=== PATIENT | male | born 1950 | race Caucasian/White ===

== ENCOUNTER 2018-10-10 05:54 | Inpatient (IN) | payer MEDICARE ==
[2018-09-29 12:37] LABS: Basophils % (Auto) 0.4 % (0.0-1.8); Eosinophils % (Auto) 0.6 % (0.0-4.3); Hematocrit 47.1 % (35.5-45.6); Hemoglobin 15.8 gm/dl (11.8-15.2); Lymphocytes # (Auto) 1.8 K/mm3 (1.2-5.4); Lymphocytes % (Auto) 30.8 % (13.4-35.0); Mean Corpuscular HGB Conc 34 % (32-34); Mean Corpuscular Volume 93 fl (84-94); Monocytes # (Auto) 0.5 K/mm3 (0.0-0.8); Monocytes % (Auto) 8.3 % (0.0-7.3); Platelet Count 216 K/mm3 (140-440); Red Blood Count 5.06 M/mm3 (3.65-5.03); Red Cell Distribution Width 13.9 % (13.2-15.2)
[2018-09-29 13:05] LABS: Alanine Aminotransferase 41 units/L (7-56); Albumin 4.3 g/dL (3.9-5); BUN/Creatinine Ratio 19; Blood Urea Nitrogen 15 mg/dL (9-20); Hemolysis Index 19
[2018-09-29 13:10] LABS: INR 0.87 (0.87-1.13); Partial Thromboplastin Time 27.9 Sec. (24.2-36.6)
--- NOTE | 2018-09-29 13:30 | Anesthesia Consultation ---
Anesthesia Consult and Med Hx - Airway Anesthetic Teeth Evaluation: Good ROM Head & Neck: Adequate Mental/Hyoid Distance: Adequate Mallampati Class: Class II - Pulmonary Exam CTA: Yes - Cardiac Exam Cardiac Exam: RRR - Pre-Operative Health Status ASA Pre-Surgery Classification: ASA2 Proposed Anesthetic Plan: General - Pulmonary Hx Smoking: No Hx Sleep Apnea: Yes (DX SLEEP APNEA WITH CPAP USE.) - Cardiovascular System Hx Hypertension: No - Central Nervous System Hx Neuromuscular Disorder: (benign tremors) - Endocrine Hx Non-Insulin Dependent Diabetes: Yes - Other Systems Hx Alcohol Use: No Hx Substance Use: No Hx Cancer: No
[~2018-10-10 05:54] MED LIST: NACL 0.9% 1000 ML 1,000 ML IV SCH; NEURONTIN PO NR
[2018-10-10] MEDS ORDERED: NACL BACTERIOSTATIC INFILTRATI ONE (06:35)
[2018-10-10] MEDS ORDERED: ACD-A 500 ML IV ONE (07:23)
[2018-10-10] MEDS ORDERED: NEOSPORIN GU IR ONE ×2 (07:23→11:25)
[2018-10-10] MEDS ORDERED: METHYLENE BLUE ONE (07:23)
[2018-10-10] MEDS ORDERED: DIPRIVAN 10 MG/ML IV ONE (07:25)
[2018-10-10] MEDS ORDERED: SUBLIMAZE ONE (07:25)
[2018-10-10] MEDS ORDERED: ZOFRAN IV PRN ×2 (07:30→11:19)
[2018-10-10] MEDS ORDERED: SUBLIMAZE IV PRN (07:30)
[2018-10-10] MEDS ORDERED: VERSED IV NR (08:00)
[2018-10-10] MEDS ORDERED: TYLENOL PO NR (08:00)
[2018-10-10] MEDS ORDERED: ANCEF/STERILE WATER 2 GM/20 ML IV NR (08:00)
[2018-10-10] MEDS ORDERED: NEURONTIN PO NR (08:00)
[2018-10-10] MEDS ORDERED: NACL 0.9% 500 ML 500 ML IV NR (08:30)
[2018-10-10] MEDS ORDERED: KETALAR ONE (08:43)
[2018-10-10] MEDS ORDERED: NEO SYNEPHRINE/NS Syringe(OR USE) IV ONE (08:49)
[2018-10-10] MEDS ORDERED: NEO SYNEPHRINE ONE (08:49)
[2018-10-10] MEDS ORDERED: QUELICIN ONE (08:49)
[2018-10-10] MEDS ORDERED: XYLOCAINE MPF 2% ONE (08:49)
[2018-10-10] MEDS ORDERED: ZOFRAN ONE ×2 (08:49→11:04)
[2018-10-10] MEDS ORDERED: ZEMURON IV ONE ×2 (08:49→11:04)
[2018-10-10] MEDS ORDERED: ROBINUL ONE (08:49)
[2018-10-10] MEDS ORDERED: DECADRON ONE (08:49)
[2018-10-10] MEDS ORDERED: WATER FOR IRRIG STERILE IR ONE (09:05)
[2018-10-10] MEDS ORDERED: NACL 0.9% IR ONE (09:05)
--- NOTE | 2018-10-10 11:15 | Post Operative Note ---
Date of procedure: 10/10/18 Pre-op diagnosis: ca prostate AKERS Post-op diagnosis: same Findings: large gland Procedure: RRP Anesthesia: GETA Surgeon: AILYN AUGUST Natural Resource Specialist: EVONNE ALLEN Estimated blood loss: other (450) Pathology: list (prostae svs) Specimen disposition: to lab Condition: stable Disposition: PACU
[2018-10-10] MEDS ORDERED: MORPHINE IV PRN (11:19)
[2018-10-10] MEDS ORDERED: TYLENOL PO PRN (11:19)
[2018-10-10] MEDS ORDERED: NARCAN 0.4 MG/1 ML IV PRN (11:19)
[2018-10-10 11:23] LABS: Hematocrit 64.1 % (35.5-45.6); Hemoglobin 20.8 gm/dl (11.8-15.2)
[2018-10-10] MEDS: DILAUDID IV PRN ×3 (11:50→12:10)
[2018-10-10 12:15] LABS: Basophils % (Auto) 0.3 % (0.0-1.8); Eosinophils % (Auto) 0.1 % (0.0-4.3); Hematocrit 46.6 % (35.5-45.6); Hemoglobin 15.7 gm/dl (11.8-15.2); Lymphocytes # (Auto) 1.1 K/mm3 (1.2-5.4); Lymphocytes % (Auto) 8.5 % (13.4-35.0); Mean Corpuscular HGB Conc 34 % (32-34); Mean Corpuscular Volume 94 fl (84-94); Monocytes # (Auto) 0.2 K/mm3 (0.0-0.8); Monocytes % (Auto) 1.6 % (0.0-7.3); Platelet Count 198 K/mm3 (140-440); Red Blood Count 4.98 M/mm3 (3.65-5.03); Red Cell Distribution Width 13.7 % (13.2-15.2)
[2018-10-10 12:47] LABS: BUN/Creatinine Ratio 12; Blood Urea Nitrogen 12 mg/dL (9-20); Calcium 8.2 mg/dL (8.4-10.2); Hemolysis Index 19
[2018-10-10] MEDS: D5W/0.45% NACL/KCL 20 MEQ 20 MEQ/1,000 ML BAG IV SCH ×2 (13:25→22:15)
--- NOTE | 2018-10-10 14:49 | Operative Report ---
PREOPERATIVE DIAGNOSIS: Adenocarcinoma of the prostate, bladder outlet obstruction. POSTOPERATIVE DIAGNOSIS: Adenocarcinoma of the prostate, bladder outlet obstruction. PROCEDURE: Radical retropubic prostatectomy. SURGEON: Jesu Henley MD and Wisam May MD ANESTHESIA: General. FINDINGS: This is a gentleman with bladder outlet obstruction, elevated PSA and prostate cancer confirmed. He now presents for radical prostatectomy. Robotic was offered, but he has had three mesh surgeries at the level of the umbilicus. DESCRIPTION OF PROCEDURE: The patient was brought to the operating room and placed on the operating table. Following induction of anesthesia, placed in supine position, prepped and draped in usual sterile fashion. A midline incision was made, carried through the skin and superficial fascial layers. Gerber catheter was placed and was draining well. At this point, we carried this down to the space of Retzius and endopelvic fascia was opened. Iliac vessels were exposed. There were no suspicious nodes noted and formal node dissection was not carried out. At this point, the endopelvic fascia was opened and large amount of fatty tissue above the puboprostatic were taken down. The puboprostatic opened and using an Allis clamp we tied the dorsal venous complex. A backbleeding stitch was also placed. The dorsal venous complex was divided with the cautery and carried down to the urethra. We separately sutured the dorsal venous complex as well. Urethra was isolated and opened. The Gerber was brought forward and 6 sutures with the Capio placed. Once these were secured on the distal end, the distal urethra was divided and an excellent plane was developed between the prostate and rectum. Prostate was held up and the pedicles were taken on the right and then the left side without difficulty. Hemostasis was good. Denonvilliers fascia was opened and the seminal vesicles and vasa were then divided down to the tips and clipped with small clips. At this point, wound was irrigated. The rest of the small pedicles were divided, all cauterized and carried anteriorly. We could feel the middle lobe, which was 2.5 cm in the middle lobe and the patient was given blue just in case we needed it. The anterior bladder neck was opened and the middle lobe was scooped out and we hug the middle lobe and remove the specimen. Bladder neck was reconstructed with 3-0 Vicryl and 2-0 Vicryl. Excellent bladder neck was achieved and the anastomosis was completed with previously placed Capio sutures over a Silastic catheter. Wound was irrigated. Tisseel was placed. The patient tolerated the procedure well. RICHARD was placed in space of Retzius and secured with silk. Muscle was approximated with 3-0 Vicryl, fascia with looped PDS and skin with clips. The patient tolerated the procedure well. Catheter irrigated freely, brought to recovery room in stable condition. JOB# [id number] RON/JIMENEZ
--- NOTE | 2018-10-10 14:56 | Consultation ---
History of Present Illness - Reason for Consult Consult date: 10/10/18 Diabetes, HTN Requesting physician: AILYN AUGUST - History of Present Illness 68 YO Male with DUSTIN on CPAP QHS, DM prsents to [facility] for elective prostatectomy. Consult placed by Dr. August for medical management. Pt seen and evaluated in his room. Pt family at bedside. Pt denies fever, chills, CP, Palpitatioins, shortness of breath, skin rash, or recent ill contacts. Pt is comfortable and denies pain. No reported nursing events. Past History Past Medical History: diabetes, other (DUSTIN) Past Surgical History: Other (Prostate surgery) Social history: , lives with family Family history: diabetes, hypertension Medications and Allergies Allergies Allergy/AdvReac Type Severity Reaction Status Date / Time No Known Allergies Allergy Verified 04/11/14 13:48 Home Medications Medication Instructions Recorded Confirmed Last Taken Type Metformin HCl [Metformin HCl ER] 1,000 mg PO BID 04/03/14 10/10/18 10/08/18 09:00 History Canagliflozin [Invokana] 300 mg PO DAILY 09/27/18 10/10/18 10/08/18 09:00 History Multivit-Mins/Iron/Folic/Lycop 1 each PO DAILY 09/27/18 10/10/18 10/08/18 09:00 History [Centrum Men's Tablet] Active Meds: Active Medications Acetaminophen (Tylenol) 650 mg PO PREOP NR Stop: 10/10/18 21:00 Last Admin: 10/10/18 07:40 Dose: 650 mg Documented by: Acetaminophen (Tylenol) 650 mg PO Q4H PRN PRN Reason: Pain MILD(1-3)/Fever >100.5/MEHTA Cefazolin Sodium (Ancef/Sterile Water 2 Gm/20 Ml) 2 gm IV PREOP NR Stop: 10/10/18 15:00 Celecoxib (Celebrex) 200 mg PO PREOP NR Stop: 10/10/18 21:00 Last Admin: 10/10/18 07:39 Dose: 200 mg Documented by: Fentanyl (Sublimaze) 50 mcg IV Q5MIN PRN PRN Reason: Pain , Severe (7-10) Stop: 10/10/18 19:00 Gabapentin (Neurontin) 300 mg PO PREOP NR Stop: 10/10/18 21:00 Last Admin: 10/10/18 07:40 Dose: 300 mg Documented by: Hydromorphone HCl (Dilaudid) 0.5 mg IV Q10MIN PRN PRN Reason: Pain , Severe (7-10) Stop: 10/10/18 15:00 Last Admin: 10/10/18 12:10 Dose: 0.5 mg Documented by: Sodium Chloride (Nacl 0.9% 1000 Ml) 1,000 mls @ 75 mls/hr IV DIRECT NEY Last Admin: 10/10/18 06:40 Dose: 75 mls/hr Documented by: Sodium Chloride (Nacl 0.9% 500 Ml) 500 mls @ 0 mls/hr IV ONCE NR Stop: 10/10/18 16:00 Potassium Chloride/Dextrose/Sod Cl (D5w/0.45% Nacl/Kcl 20 Meq) 20 meq in 1,000 mls @ 125 mls/hr IV DIRECT NEY Last Admin: 10/10/18 13:25 Dose: 125 mls/hr Documented by: Cefazolin Sodium (Ancef/Ns 1 Gm/50 Ml) 1 gm in 50 mls @ 100 mls/hr IV Q8H NEY; Protocol Stop: 10/11/18 00:29 Metformin HCl (Glucophage Xr) 1,000 mg PO BIDDIAB NEY Midazolam HCl (Versed) 2 mg IV PREOP NR Stop: 10/10/18 23:59 Last Admin: 10/10/18 07:41 Dose: 2 mg Documented by: Miscellaneous Medication (Canagliflozin [Invokana]) 300 mg PO DAILY NEY Morphine Sulfate (Morphine) 2 mg IV Q4H PRN PRN Reason: Pain, Moderate (4-6) Naloxone HCl (Narcan 0.4 Mg/1 Ml) 0.1 mg IV Q2MIN PRN PRN Reason: Res Rate </= 8 or 02 SAT < 92% Ondansetron HCl (Zofran) 4 mg IV ONCE PRN PRN Reason: Nausea And Vomiting Ondansetron HCl (Zofran) 4 mg IV Q8H PRN PRN Reason: N/V unrelieved by Reglan Oxycodone/Acetaminophen (Percocet 5/325) 1 tab PO Q6H PRN PRN Reason: Pain, Moderate (4-6) Review of Systems Constitutional: no weight loss, no weight gain, no fever, no chills, no sweats Ears, nose, mouth and throat: no ear pain, no tinnitis, no decreased hearing, no nose pain, no nasal congestion, no sinus pressure Cardiovascular: no chest pain, no orthopnea, no palpitations, no rapid/irregular heart beat, no edema, no lightheadedness, no shortness of breath Respiratory: no cough, no cough with sputum, no excessive sputum, no hemoptysis Gastrointestinal: no abdominal pain, no nausea, no vomiting, no diarrhea, no constipation, no change in bowel habits Genitourinary Male: no hematuria, no urinary hesitancy Rectal: no pain, no incontinence, no bleeding Musculoskeletal: no neck stiffness, no neck pain, no shooting arm pain, no low back pain Integumentary: no rash, no pruritis, no redness, no wounds, no jaundice, no boils Neurological: no transient paralysis, no paralysis, no parathesias, no numbness, no seizures Psychiatric: no anxiety, no memory loss, no sleep disturbances, no insomnia, no change in appetite, no suicidal ideation Endocrine: no cold intolerance, no heat intolerance, no polyphagia, no excessive thirst, no polydipsia Hematologic/Lymphatic: no easy bruising, no easy bleeding, no lymphadenopathy Allergic/Immunologic: no urticaria, no persistent infections, no anaphylaxis, no angioedema Exam - Constitutional Vitals: Temp Pulse Resp BP Pulse Ox 97.5 F L 94 H 18 139/80 93 10/10/18 13:05 10/10/18 13:05 10/10/18 13:05 10/10/18 13:05 10/10/18 13:05 General appearance: Present: no acute distress, well-nourished - EENT Eyes: Present: PERRL ENT: hearing intact, clear oral mucosa - Neck Neck: Present: supple, normal ROM - Respiratory Respiratory effort: normal Respiratory: bilateral: CTA - Cardiovascular Heart Sounds: Present: S1 & S2. Absent: rub, click - Extremities Extremities: pulses symmetrical, No edema Peripheral Pulses: within normal limits - Abdominal General gastrointestinal: Present: soft, non-tender, non-distended, normal bowel sounds Male genitourinary: Present: normal - Integumentary Integumentary: Present: clear, warm, dry - Musculoskeletal Musculoskeletal: gait normal, strength equal bilaterally - Psychiatric Psychiatric: appropriate mood/affect, intact judgment & insight - Neurologic Neurologic: CNII-XII intact, moves all extremities Results - Labs CBC & Chem 7: 10/10/18 11:53 10/10/18 11:53 Labs: Abnormal lab results 10/10/18 10/10/18 10/10/18 Range/Units 06:40 06:46 10:53 WBC (4.5-11.0) K/mm3 Hgb (11.8-15.2) gm/dl Hct (35.5-45.6) % Lymph % (Auto) (13.4-35.0) % Lymph # (1.2-5.4) K/mm3 Seg Neutrophils % (40.0-70.0) % Seg Neutrophils # (1.8-7.7) K/mm3 Glucose (75-100) mg/dL POC Glucose 121 H (70-105) Calcium (8.4-10.2) mg/dL Albumin < 0.2 L (3.9-5) g/dL Crossmatch See Detail 10/10/18 10/10/18 10/10/18 Range/Units 10:53 11:51 11:53 WBC 13.3 H (4.5-11.0) K/mm3 Hgb 20.8 H* 15.7 H D (11.8-15.2) gm/dl Hct 64.1 H* 46.6 H D (35.5-45.6) % Lymph % (Auto) 8.5 L (13.4-35.0) % Lymph # 1.1 L (1.2-5.4) K/mm3 Seg Neutrophils % 89.5 H (40.0-70.0) % Seg Neutrophils # 11.9 H (1.8-7.7) K/mm3 Glucose (75-100) mg/dL POC Glucose 143 H (70-105) Calcium (8.4-10.2) mg/dL Albumin (3.9-5) g/dL Crossmatch 10/10/18 Range/Units 11:53 WBC (4.5-11.0) K/mm3 Hgb (11.8-15.2) gm/dl Hct (35.5-45.6) % Lymph % (Auto) (13.4-35.0) % Lymph # (1.2-5.4) K/mm3 Seg Neutrophils % (40.0-70.0) % Seg Neutrophils # (1.8-7.7) K/mm3 Glucose 199 H (75-100) mg/dL POC Glucose (70-105) Calcium 8.2 L (8.4-10.2) mg/dL Albumin (3.9-5) g/dL Crossmatch Assessment and Plan - Patient Problems (1) DUSTIN (obstructive sleep apnea) Current Visit: Yes Status: Acute Plan to address problem: Supplemental oxygen, nebulizer therapy, NPPV qhs, incentive spirometry, early ambulation. (2) Diabetes Current Visit: Yes Status: Acute Plan to address problem: ADA diet, sliding scale insulin therapy, accu check, hypoglycemia protocol
[2018-10-10] MEDS ORDERED: D50W (25GM) Syringe IV PRN (14:57)
[2018-10-10] MEDS: ANCEF/NS 1 GM/50 ML 1 GM/50 ML BAG IV SCH (16:30)
[2018-10-10] MEDS: PERCOCET 5/325 PO PRN ×2 (16:40→23:23)
[2018-10-10] MEDS ORDERED: GLUCOPHAGE XR PO SCH (17:00)
[2018-10-10] MEDS: HumaLOG SUB-Q SCH (17:28)
[2018-10-10] MEDS ORDERED: METFORMIN HCL 1000 MG PO SCH (22:00)
[2018-10-11] MEDS: ANCEF/NS 1 GM/50 ML 1 GM/50 ML BAG IV SCH (00:13)
[2018-10-11] MEDS: HumaLOG SUB-Q SCH ×4 (00:13→17:01)
--- NOTE | 2018-10-11 08:02 | Progress Note ---
Assessment and Plan Assessment and plan: 68-year-old male was admitted by urology for prostatectomy. HM consulted for management of his diabetes and DUSTIN Diabetes mellitus; on sliding scale insulin, ADA diet, accucheck. Obstructive sleep apnea; continue CPAP daily at bedtime Status post prostatectomy; management per urology Disposition; per urology. History Interval history: Patient was seen and a lot of this morning, no obvious bleeding seen on catheter. Hospitalist Physical - Physical exam Narrative exam: Not in cardiopulmonary distress. The patient appeared well nourished and normally developed. Vital signs as documented. Head exam is unremarkable. No scleral icterus . Neck is without jugular venous distension, thyromegaly, or carotid bruits. Lungs are clear to auscultation. Cardiac exam reveals regular rate and Rhythm. Abdominal exam reveals normal bowel sounds. Extremities are nonedematous and both femoral and pedal pulses are normal. REGULATORY COORDINATOR: Alert and oriented 3. No focal weakness. - Constitutional Vitals: Temp Pulse Resp BP Pulse Ox 98.8 F 66 19 110/66 100 10/11/18 07:15 10/11/18 07:15 10/11/18 07:15 10/11/18 07:15 10/11/18 07:15 General appearance: Present: no acute distress, well-nourished Results - Labs CBC & Chem 7: 10/10/18 11:53 10/10/18 11:53 Labs: Laboratory Last Values WBC 13.3 K/mm3 (4.5-11.0) H 10/10/18 11:53 RBC 4.98 M/mm3 (3.65-5.03) 10/10/18 11:53 Hgb 15.7 gm/dl (11.8-15.2) H D 10/10/18 11:53 Hct 46.6 % (35.5-45.6) H D 10/10/18 11:53 MCV 94 fl (84-94) 10/10/18 11:53 MCH 32 pg (28-32) 10/10/18 11:53 MCHC 34 % (32-34) 10/10/18 11:53 RDW 13.7 % (13.2-15.2) 10/10/18 11:53 Plt Count 198 K/mm3 (140-440) 10/10/18 11:53 Lymph % (Auto) 8.5 % (13.4-35.0) L 10/10/18 11:53 [place] % (Auto) 1.6 % (0.0-7.3) 10/10/18 11:53 Eos % (Auto) 0.1 % (0.0-4.3) 10/10/18 11:53 Baso % (Auto) 0.3 % (0.0-1.8) 10/10/18 11:53 Lymph # 1.1 K/mm3 (1.2-5.4) L 10/10/18 11:53 [place] # 0.2 K/mm3 (0.0-0.8) 10/10/18 11:53 Eos # 0.0 K/mm3 (0.0-0.4) 10/10/18 11:53 Baso # 0.0 K/mm3 (0.0-0.1) 10/10/18 11:53 Seg Neutrophils % 89.5 % (40.0-70.0) H 10/10/18 11:53 Seg Neutrophils # 11.9 K/mm3 (1.8-7.7) H 10/10/18 11:53 PT 12.3 Sec. (12.2-14.9) 09/29/18 11:50 INR 0.87 (0.87-1.13) 09/29/18 11:50 APTT 27.9 Sec. (24.2-36.6) 09/29/18 11:50 Sodium 140 mmol/L (137-145) 10/10/18 11:53 Potassium 4.6 mmol/L (3.6-5.0) 10/10/18 11:53 Chloride 102.9 mmol/L (98-107) 10/10/18 11:53 Carbon Dioxide 22 mmol/L (22-30) 10/10/18 11:53 20 mmol/L 10/10/18 11:53 BUN 12 mg/dL (9-20) 10/10/18 11:53 1.0 mg/dL (0.8-1.5) 10/10/18 11:53 Estimated GFR > 60 ml/min 10/10/18 11:53 12 % 10/10/18 11:53 Glucose 199 mg/dL (75-100) H 10/10/18 11:53 POC Glucose 139 (70-105) H 10/11/18 05:34 Calcium 8.2 mg/dL (8.4-10.2) L 10/10/18 11:53 0.60 mg/dL (0.1-1.2) 09/29/18 11:50 AST 25 units/L (5-40) 09/29/18 11:50 ALT 41 units/L (7-56) 09/29/18 11:50 91 units/L (35-129) 09/29/18 11:50 7.4 g/dL (6.3-8.2) 09/29/18 11:50 < 0.2 g/dL (3.9-5) L 10/10/18 10:53 1.4 % 09/29/18 11:50 Blood Type O POSITIVE 10/10/18 06:40 Antibody Screen TNR 10/10/18 06:40 NADIYA Antibody Screen Negative 10/10/18 06:40 Crossmatch See Detail 10/10/18 06:40 Active Medications - Current Medications Current Medications: Generic Name Dose Route Start Last Admin Trade Name Freq PRN Reason Stop Dose Admin Acetaminophen 650 mg 10/10/18 11:19 Tylenol PO Q4H PRN Pain MILD(1-3)/Fever >100.5/MEHTA Dextrose 50 ml 10/10/18 14:57 D50w (25gm) Syringe IV PRN PRN Hypoglycemia Sodium Chloride 1,000 mls @ 75 mls/hr 09/29/18 14:00 10/10/18 06:40 Nacl 0.9% 1000 Ml IV 75 mls/hr DIRECT NEY Administration Potassium Chloride/Dextrose/Sod Cl 20 meq in 1,000 mls @ 125 mls/hr 10/10/18 12:00 10/10/18 22:15 D5w/0.45% Nacl/Kcl 20 Meq IV 125 mls/hr DIRECT NEY Administration Insulin Human Lispro 0 unit 10/10/18 18:00 10/11/18 00:13 Humalog SUB-Q 3 unit Q6HR NEY Administration Protocol Morphine Sulfate 2 mg 10/10/18 11:19 Morphine IV Q4H PRN Pain, Moderate (4-6) Naloxone HCl 0.1 mg 10/10/18 11:19 Narcan 0.4 Mg/1 Ml IV Q2MIN PRN Res Rate </= 8 or 02 SAT < 92% Ondansetron HCl 4 mg 10/10/18 07:30 Zofran IV ONCE PRN Nausea And Vomiting Ondansetron HCl 4 mg 10/10/18 11:19 Zofran IV Q8H PRN N/V unrelieved by Tone Oxycodone/Acetaminophen 1 tab 10/10/18 11:19 10/10/18 23:23 Percocet 5/325 PO 1 tab Q6H PRN Administration Pain, Moderate (4-6)
[2018-10-11] MEDS ORDERED: NON-FORMULARY (Canagliflozin [Invokana] 300 MG) PO SCH (10:00)
--- NOTE | 2018-10-11 10:50 | Progress Note ---
Assessment and Plan looks well oob today min j/p urine blue from [place] Subjective Date of service: 10/11/18 Principal diagnosis: cap Objective - Constitutional Vitals: Vital Signs - 12hr 10/10/18 10/11/18 10/11/18 23:23 00:00 05:01 Temperature Pulse Rate 79 73 Respiratory 17 Rate Blood Pressure 104/62 Blood Pressure [Right] O2 Sat by Pulse 96 Oximetry 10/11/18 10/11/18 10/11/18 05:33 07:15 10:21 Temperature 98.2 F 98.8 F Pulse Rate 70 66 Respiratory 18 19 Rate Blood Pressure 101/63 Blood Pressure 110/66 [Right] O2 Sat by Pulse 96 100 98 Oximetry General appearance: Present: no acute distress - Neck Neck: supple - Respiratory Respiratory effort: normal Extremities: no ischemia - Gastrointestinal General gastrointestinal: Present: soft, non-tender - Labs CBC & Chem 7: 10/10/18 11:53 10/10/18 11:53 Labs: Abnormal lab results 10/10/18 10/10/18 10/10/18 Range/Units 06:40 10:53 10:53 WBC (4.5-11.0) K/mm3 Hgb 20.8 H* (11.8-15.2) gm/dl Hct 64.1 H* (35.5-45.6) % Lymph % (Auto) (13.4-35.0) % Lymph # (1.2-5.4) K/mm3 Seg Neutrophils % (40.0-70.0) % Seg Neutrophils # (1.8-7.7) K/mm3 Glucose (75-100) mg/dL POC Glucose (70-105) Calcium (8.4-10.2) mg/dL Albumin < 0.2 L (3.9-5) g/dL Crossmatch See Detail 10/10/18 10/10/18 10/10/18 Range/Units 11:51 11:53 11:53 WBC 13.3 H (4.5-11.0) K/mm3 Hgb 15.7 H D (11.8-15.2) gm/dl Hct 46.6 H D (35.5-45.6) % Lymph % (Auto) 8.5 L (13.4-35.0) % Lymph # 1.1 L (1.2-5.4) K/mm3 Seg Neutrophils % 89.5 H (40.0-70.0) % Seg Neutrophils # 11.9 H (1.8-7.7) K/mm3 Glucose 199 H (75-100) mg/dL POC Glucose 143 H (70-105) Calcium 8.2 L (8.4-10.2) mg/dL Albumin (3.9-5) g/dL Crossmatch 10/10/18 10/11/18 10/11/18 Range/Units 15:12 00:01 05:34 WBC (4.5-11.0) K/mm3 Hgb (11.8-15.2) gm/dl Hct (35.5-45.6) % Lymph % (Auto) (13.4-35.0) % Lymph # (1.2-5.4) K/mm3 Seg Neutrophils % (40.0-70.0) % Seg Neutrophils # (1.8-7.7) K/mm3 Glucose (75-100) mg/dL POC Glucose 190 H 208 H 139 H (70-105) Calcium (8.4-10.2) mg/dL Albumin (3.9-5) g/dL Crossmatch Medications & Allergies - Medications Allergies/Adverse Reactions: Allergies No Known Allergies Allergy (Verified 04/11/14 13:48) Home Medications: Home Medications Medication Instructions Recorded Confirmed Last Taken Type Metformin HCl [Metformin HCl ER] 1,000 mg PO BID 04/03/14 10/10/18 10/08/18 09:00 History Canagliflozin [Invokana] 300 mg PO DAILY 09/27/18 10/10/18 10/08/18 09:00 History Multivit-Mins/Iron/Folic/Lycop 1 each PO DAILY 09/27/18 10/10/18 10/08/18 09:00 History [Centrum Men's Tablet] Active Medications: Generic Name Dose Route Start Last Admin Trade Name Freq PRN Reason Stop Dose Admin Acetaminophen 650 mg 10/10/18 11:19 Tylenol PO Q4H PRN Pain MILD(1-3)/Fever >100.5/MEHTA Dextrose 50 ml 10/10/18 14:57 D50w (25gm) Syringe IV PRN PRN Hypoglycemia Sodium Chloride 1,000 mls @ 75 mls/hr 09/29/18 14:00 10/10/18 06:40 Nacl 0.9% 1000 Ml IV 75 mls/hr DIRECT NEY Administration Potassium Chloride/Dextrose/Sod Cl 20 meq in 1,000 mls @ 125 mls/hr 10/10/18 12:00 10/10/18 22:15 D5w/0.45% Nacl/Kcl 20 Meq IV 125 mls/hr DIRECT NEY Administration Insulin Human Lispro 0 unit 10/10/18 18:00 10/11/18 00:13 Humalog SUB-Q 3 unit Q6HR NEY Administration Protocol Morphine Sulfate 2 mg 10/10/18 11:19 10/11/18 09:42 Morphine IV 2 mg Q4H PRN Administration Pain, Moderate (4-6) Naloxone HCl 0.1 mg 10/10/18 11:19 Narcan 0.4 Mg/1 Ml IV Q2MIN PRN Res Rate </= 8 or 02 SAT < 92% Ondansetron HCl 4 mg 10/10/18 07:30 Zofran IV ONCE PRN Nausea And Vomiting Ondansetron HCl 4 mg 10/10/18 11:19 Zofran IV Q8H PRN N/V unrelieved by Tone Oxycodone/Acetaminophen 1 tab 10/10/18 11:19 10/10/18 23:23 Percocet 5/325 PO 1 tab Q6H PRN Administration Pain, Moderate (4-6)
[2018-10-11] MEDS: PERCOCET 5/325 PO PRN ×2 (13:12→21:46)
[2018-10-11] MEDS: D5W/0.45% NACL/KCL 20 MEQ 20 MEQ/1,000 ML BAG IV SCH (16:29)
[2018-10-12] MEDS: PERCOCET 5/325 PO PRN ×2 (05:43→11:05)
[2018-10-12] MEDS: HumaLOG SUB-Q SCH ×3 (06:39→13:00)
[2018-10-12 07:46] VITALS: BP 113/71
--- NOTE | 2018-10-12 11:50 | Progress Note ---
Assessment and Plan Assessment and plan: 68-year-old male was admitted by urology for prostatectomy. HM consulted for management of his diabetes and DUSTIN Diabetes mellitus; on sliding scale insulin, ADA diet, accucheck. Obstructive sleep apnea; continue CPAP daily at bedtime Status post prostatectomy; management per urology Disposition; per urology. History Interval history: Patient was seen and a lot of this morning, no obvious bleeding seen on catheter. Hospitalist Physical - Physical exam Narrative exam: Not in cardiopulmonary distress. The patient appeared well nourished and normally developed. Vital signs as documented. Head exam is unremarkable. No scleral icterus . Neck is without jugular venous distension, thyromegaly, or carotid bruits. Lungs are clear to auscultation. Cardiac exam reveals regular rate and Rhythm. Abdominal exam reveals normal bowel sounds. Extremities are nonedematous and both femoral and pedal pulses are normal. CANOE INSPECTOR FINAL: Alert and oriented 3. No focal weakness. - Constitutional Vitals: Temp Pulse Resp BP Pulse Ox 99.2 F 72 18 113/71 95 10/12/18 07:09 10/12/18 07:09 10/12/18 07:09 10/12/18 07:09 10/12/18 07:09 General appearance: Present: no acute distress Results - Labs CBC & Chem 7: 10/10/18 11:53 10/10/18 11:53 Labs: Laboratory Last Values WBC 13.3 K/mm3 (4.5-11.0) H 10/10/18 11:53 RBC 4.98 M/mm3 (3.65-5.03) 10/10/18 11:53 Hgb 15.7 gm/dl (11.8-15.2) H D 10/10/18 11:53 Hct 46.6 % (35.5-45.6) H D 10/10/18 11:53 MCV 94 fl (84-94) 10/10/18 11:53 MCH 32 pg (28-32) 10/10/18 11:53 MCHC 34 % (32-34) 10/10/18 11:53 RDW 13.7 % (13.2-15.2) 10/10/18 11:53 Plt Count 198 K/mm3 (140-440) 10/10/18 11:53 Lymph % (Auto) 8.5 % (13.4-35.0) L 10/10/18 11:53 [place] % (Auto) 1.6 % (0.0-7.3) 10/10/18 11:53 Eos % (Auto) 0.1 % (0.0-4.3) 10/10/18 11:53 Baso % (Auto) 0.3 % (0.0-1.8) 10/10/18 11:53 Lymph # 1.1 K/mm3 (1.2-5.4) L 10/10/18 11:53 [place] # 0.2 K/mm3 (0.0-0.8) 10/10/18 11:53 Eos # 0.0 K/mm3 (0.0-0.4) 10/10/18 11:53 Baso # 0.0 K/mm3 (0.0-0.1) 10/10/18 11:53 Seg Neutrophils % 89.5 % (40.0-70.0) H 10/10/18 11:53 Seg Neutrophils # 11.9 K/mm3 (1.8-7.7) H 10/10/18 11:53 PT 12.3 Sec. (12.2-14.9) 09/29/18 11:50 INR 0.87 (0.87-1.13) 09/29/18 11:50 APTT 27.9 Sec. (24.2-36.6) 09/29/18 11:50 Sodium 140 mmol/L (137-145) 10/10/18 11:53 Potassium 4.6 mmol/L (3.6-5.0) 10/10/18 11:53 Chloride 102.9 mmol/L (98-107) 10/10/18 11:53 Carbon Dioxide 22 mmol/L (22-30) 10/10/18 11:53 20 mmol/L 10/10/18 11:53 BUN 12 mg/dL (9-20) 10/10/18 11:53 1.0 mg/dL (0.8-1.5) 10/10/18 11:53 Estimated GFR > 60 ml/min 10/10/18 11:53 12 % 10/10/18 11:53 Glucose 199 mg/dL (75-100) H 10/10/18 11:53 POC Glucose 128 (70-105) H 10/12/18 06:22 Calcium 8.2 mg/dL (8.4-10.2) L 10/10/18 11:53 0.60 mg/dL (0.1-1.2) 09/29/18 11:50 AST 25 units/L (5-40) 09/29/18 11:50 ALT 41 units/L (7-56) 09/29/18 11:50 91 units/L (35-129) 09/29/18 11:50 7.4 g/dL (6.3-8.2) 09/29/18 11:50 < 0.2 g/dL (3.9-5) L 10/10/18 10:53 1.4 % 09/29/18 11:50 Blood Type O POSITIVE 10/10/18 06:40 Antibody Screen TNR 10/10/18 06:40 NADIYA Antibody Screen Negative 10/10/18 06:40 Crossmatch See Detail 10/10/18 06:40 Active Medications - Current Medications Current Medications: Generic Name Dose Route Start Last Admin Trade Name Freq PRN Reason Stop Dose Admin Acetaminophen 650 mg 10/10/18 11:19 Tylenol PO Q4H PRN Pain MILD(1-3)/Fever >100.5/MEHTA Dextrose 50 ml 10/10/18 14:57 D50w (25gm) Syringe IV PRN PRN Hypoglycemia Sodium Chloride 1,000 mls @ 75 mls/hr 09/29/18 14:00 10/10/18 06:40 Nacl 0.9% 1000 Ml IV 75 mls/hr DIRECT NEY Administration Potassium Chloride/Dextrose/Sod Cl 20 meq in 1,000 mls @ 125 mls/hr 10/10/18 12:00 10/11/18 16:29 D5w/0.45% Nacl/Kcl 20 Meq IV 125 mls/hr DIRECT NEY Administration Insulin Human Lispro 0 unit 10/10/18 18:00 10/12/18 06:40 Humalog SUB-Q Not Given Q6HR NEY Protocol Morphine Sulfate 2 mg 10/10/18 11:19 10/11/18 09:42 Morphine IV 2 mg Q4H PRN Administration Pain, Moderate (4-6) Naloxone HCl 0.1 mg 10/10/18 11:19 Narcan 0.4 Mg/1 Ml IV Q2MIN PRN Res Rate </= 8 or 02 SAT < 92% Ondansetron HCl 4 mg 10/10/18 07:30 Zofran IV ONCE PRN Nausea And Vomiting Ondansetron HCl 4 mg 10/10/18 11:19 Zofran IV Q8H PRN N/V unrelieved by Reglan Oxycodone/Acetaminophen 1 tab 10/10/18 11:19 10/12/18 05:43 Percocet 5/325 PO 1 tab Q6H PRN Administration Pain, Moderate (4-6) Nutrition/Malnutrition Assess - Dietary Evaluation Nutrition/Malnutrition Findings: Nutrition Notes Start: 10/11/18 16:49 Freq: Status: Active Protocol: Document 10/11/18 16:49 RM (Rec: 10/11/18 16:51 RM [id number]) Nutrition Notes Need for Assessment generated from: [facility] Initial or Follow up Brief Note Current Diagnosis Diabetes Other Pertinent Diagnosis S/P prostatectomy Current Diet Consisent CHO Labs/Tests Reviewed Pertinent Medications Reviewed Height 5 ft 8 in Weight 86.183 kg Usual Body Weight 84.55 kg Adams Body Weight (kg) 70.00 BMI 28.8 Subjective/Other Information Screened for malnutrition. Pt stated that his appetite is good and that he eats all of his meals. Stated UBW is 186 lbs. No temporal orbital wasting. Burn Absent Trauma Absent Nutrition Intervention Revisit per MD consult or patient Sign Off request:
--- NOTE | 2018-10-12 14:07 | Discharge Summary ---
Providers - Providers Date of Admission: 10/10/18 05:54 Date of discharge: 10/12/18 Attending physician: AILYN AUGUST Primary care physician: CHIOMA VELEZ Hospitalization Reason for admission: 68 yr old male with prostate cancer Condition: Good Procedures: retropubic prostatectomy Hospital course: unremarkavle advanced diet, removed drain family at bedside instructions given pt has scripts Disposition: DC-01 TO HOME OR SELFCARE Core Measure Documentation - Palliative Care Palliative Care/ Comfort Measures: Not Applicable - Core Measures Any of the following diagnoses?: none - VTE Discharge Requirements Deep Vein Thrombosis/Pulmonary Embolism Present on Admission: No Has pt received <5 days of overlap therapy or INR<2.0: No Anticoagulant overlap therapy prescribed at discharge: No Contraindication No Overlap Therapy order at DC: Medical Contraindication - Acute NM Discharge Requirements Aspirin at discharge: No Reason for no aspirin on DC: Surgical contraindication JUN/ARB for LVSD if EF <40%: No Reason for no JUN/ARB: Medical contraindication Beta trini at discharge: No Reason for no beta trini on DC: Medical contraindication Statin for LDL = or >100 mg/dl on DC: No Reason for no statin on DC: Surgical contraindication - Heart Failure Discharge Requirements JUN/ARB for LVSD if EF <40%: No Reason for no JUN/ARB: Medical contraindication Beta trini at discharge: No Reason for no beta trini on DC: Medical contraindication - Stroke Discharge Requirements Statin for LDL = or >70 mg/dl on DC: No Reason for no statin on DC: Medical Contraindication Anticoag for atrial fib/atrial flutter: No Reason for no anticoag for AF/F on DC: Medical Contraindication Antithrombotic for ischemic stroke: No Reason for no antithrombotic on DC: Medical Contraindication Exam - Constitutional Vitals: Temp Pulse Resp BP Pulse Ox 99.2 F 72 18 113/71 95 10/12/18 07:09 10/12/18 07:09 10/12/18 07:09 10/12/18 07:09 10/12/18 07:09 General appearance: Present: no acute distress, well-nourished - EENT Eyes: Present: PERRL ENT: hearing intact, clear oral mucosa - Neck Neck: Present: supple, normal ROM - Respiratory Respiratory effort: normal Respiratory: bilateral: CTA - Cardiovascular Heart Sounds: Present: S1 & S2. Absent: rub, click - Extremities Extremities: pulses symmetrical, No edema Peripheral Pulses: within normal limits - Abdominal General gastrointestinal: Present: soft, non-tender, non-distended, normal bowel sounds Male genitourinary: Present: normal - Integumentary Integumentary: Present: clear, warm, dry - Musculoskeletal Musculoskeletal: gait normal, strength equal bilaterally - Psychiatric Psychiatric: appropriate mood/affect, intact judgment & insight - Neurologic Neurologic: CNII-XII intact, moves all extremities Plan Activity: no restrictions Diet: regular Wound: open to air Follow up with: CHIOMA VELEZ MD [Primary Care Provider] - 7 Days
== END 2018-10-12 14:20 | disposition home or self-care (01) | DRG 708 ==
LOC: 3A 05:54 → 3B-SURG 12:09
PROVIDERS: ADMIT Urology; ATTEND Urology
PROC: 0VT00ZZ Resection of Prostate, Open Approach (ICD-10-PCS; principal; 2018-10-10)
PROC: 0TB Urinary System, Excision (ICD-10-PCS; 2018-10-10)
PROC: 0VT30ZZ Resection of Bilateral Seminal Vesicles, Open Approach (ICD-10-PCS; 2018-10-10)
PROC: 0VBQ0ZZ Excision of Bilateral Vas Deferens, Open Approach (ICD-10-PCS; 2018-10-10)
PROC: 5A09357 Assistance with Respiratory Ventilation, Less than 24 Consecutive Hours, Continuous Positive Airway Pressure (ICD-10-PCS; 2018-10-10)
PROC: 5A09357 Assistance with Respiratory Ventilation, Less than 24 Consecutive Hours, Continuous Positive Airway Pressure (ICD-10-PCS; 2018-10-11)
DX: C61 Malignant neoplasm of prostate (principal); N32.0 Bladder-neck obstruction; G47.33 Obstructive sleep apnea (adult) (pediatric); E11.9 Type 2 diabetes mellitus without complications; Z83.3 Family history of diabetes mellitus; Z82.49 Family history of ischemic heart disease and other diseases of the circulatory system; Z79.84 Long term (current) use of oral hypoglycemic drugs
CPT/HCPCS: 36415; 80048; 80053; 82040; 82962; 85014; 85018; 85025; 85610; 85730; 86850; 86900; 86901; 86920; 88309; 88342; 88344; 94760; G0378; C9250; J0330; J0690; J1100; J1170; J1815; J2250; J2270; J2370; J2405; J2704; J3010; J7030; Q9968

== ENCOUNTER 2019-06-20 12:57 | Outpatient (CLI) | payer MEDICARE ==
--- NOTE | 2019-06-20 14:16 | Cat Scan Report ---
CT ABDOMEN AND PELVIS WITHOUT CONTRAST INDICATION: HEMATURIA,GROSS. TECHNIQUE: Axial CT images were obtained through the abdomen and pelvis without IV contrast. All CT scans at [facility] are performed using CT dose reduction for ALARA by means of automated exposure control. COMPARISON: None available. FINDINGS: LOWER CHEST: No significant abnormality. LIVER: No significant abnormality. GALLBLADDER: Surgically absent BILE DUCTS: No significant abnormality. PANCREAS: No significant abnormality. SPLEEN: No significant abnormality. ADRENALS: No significant abnormality. RIGHT KIDNEY and URETER: No significant abnormality. LEFT KIDNEY and URETER: Obstructing 6 mm left proximal ureteral stone with mild left hydronephrosis. 2 additional nonobstructing left intrarenal stones, largest of which measures STOMACH and SMALL BOWEL: No significant abnormality. COLON: Mild colonic diverticulosis APPENDIX: Normal PERITONEUM: No free fluid. No free air. No fluid collection. LYMPH NODES: No significant adenopathy. AORTA and ARTERIES: No significant abnormality. IVC and VEINS: No significant abnormality. URINARY BLADDER: No significant abnormality. REPRODUCTIVE ORGANS: Prostate surgically absent ADDITIONAL FINDINGS: None. SKELETAL SYSTEM: No blastic skeletal metastases. Moderate degenerative changes lumbar spine. IMPRESSION: 1. Obstructing 6 mm left proximal ureteral stone with mild left hydronephrosis. 2. Left nephrolithiasis. 3. Mild sigmoid diverticulosis without diverticulitis. 4. Previous prostatectomy without CT evidence for intra-abdominal, pelvic or skeletal metastases. Signer Name: Shaun Shields MD Signed: 06/20/2019 2:12 PM Workstation Name: [id number]
== END 2019-06-20 12:58 | disposition home or self-care (01) ==
LOC: CT 12:57
PROVIDERS: ATTEND Urology
DX: N20.2 Calculus of kidney with calculus of ureter (principal); K57.30 Diverticulosis of large intestine without perforation or abscess without bleeding; N13.39 Other hydronephrosis; R31.0 Gross hematuria; Z90.49 Acquired absence of other specified parts of digestive tract
CPT/HCPCS: 74176

== ENCOUNTER 2019-07-27 06:00 | Day surgery (SDC) | payer MEDICARE ==
[~2019-07-27 06:00] MED LIST changes: +LACTATED RINGERS 1,000 ML IV SCH; -NACL 0.9% 1000 ML 1,000 ML IV SCH; -NEURONTIN PO NR
[2019-07-27] MEDS ORDERED: BACTERIOSTATIC SODIUM CHLORIDE 0.9% 30 ML VIAL INFILTRATI ONE (06:41)
[2019-07-27] MEDS ORDERED: LIDOCAINE MPF (2%) 20 MG/1 ML VIAL 5 ML ONE (07:10)
[2019-07-27] MEDS ORDERED: propofoL 200 MG/20 ML VIAL IV ONE (07:11)
[2019-07-27] MEDS ORDERED: fentaNYL 100 MCG/2 ML INJ ONE (07:11)
[2019-07-27] MEDS ORDERED: ONDANSETRON 4 MG/2 ML INJ ONE (07:13)
[2019-07-27] MEDS ORDERED: dexAMETHasone 20 MG/5 ML VIAL ONE (07:13)
[2019-07-27] MEDS ORDERED: ceFAZolin/Water 2 GM/20 ML 2 GM/20 ML SYRINGE IV ONE (07:22)
[2019-07-27] MEDS ORDERED: ceFAZolin/Water 2 GM/20 ML 2 GM/20 ML SYRINGE IV NR (07:24)
--- NOTE | 2019-07-27 07:32 | Anesthesia Day of Surgery ---
Anesthesia Day of Surgery - Day of Surgery Patient Examined: Yes Patient H&P Reviewed: Yes Patient is NPO: Yes
--- NOTE | 2019-07-27 07:32 | Anesthesia Consultation ---
Anesthesia Consult and Med Hx Date of service: 07/27/19 - Airway Anesthetic Teeth Evaluation: Good ROM Head & Neck: Adequate Mental/Hyoid Distance: Adequate Mallampati Class: Class II Intubation Access Assessment: Probably Good - Pulmonary Exam CTA: Yes - Cardiac Exam Cardiac Exam: RRR - Pre-Operative Health Status ASA Pre-Surgery Classification: ASA3 Proposed Anesthetic Plan: General - Pulmonary Hx Smoking: No Hx Respiratory Symptoms: No Hx Sleep Apnea: Yes (no CPAP machine) - Cardiovascular System Hx Hypertension: No Hx Heart Attack/AMI: No - Central Nervous System CVA: No Hx Back Pain: Yes - Gastrointestinal Hx Gastroesophageal Reflux Disease: No - Endocrine Hx Renal Disease: No Hx Liver Disease: No Hx Non-Insulin Dependent Diabetes: Yes Hx Thyroid Disease: No - Other Systems Hx Cancer: Yes (PROSTATE) Hx Obesity: No - Additional Comments Anesthesia Medical History Comments: No hx anesthetic complications.
[2019-07-27] MEDS ORDERED: PHENYLEPHRINE/NS 1,000 MCG/10 ML SYRINGE (OR USE) IV ONE ×2 (07:58→08:27)
--- NOTE | 2019-07-27 08:42 | Short Stay Summary ---
Short Stay Documentation Date of service: 07/27/19 - History H&P: obtained from office - Allergies and Medications Current Medications: Allergies No Known Allergies Allergy (Verified 04/11/14 13:48) Home Medications Medication Instructions Recorded Confirmed Last Taken Type Metformin HCl [Metformin HCl ER] 1,000 mg PO BID 04/03/14 07/17/19 07/26/19 18:00 History Multivit-Mins/Iron/Folic/Lycop 1 each PO DAILY 09/27/18 07/17/19 07/26/19 18:00 History [Centrum Men's Tablet] Bydureon 1 syr SUB-Q 1XW 07/14/19 07/14/19 07/26/19 18:00 History Active Medications Fentanyl (Sublimaze) 50 mcg IV Q5MIN PRN PRN Reason: Pain , Severe (7-10) Stop: 07/27/19 22:00 Lactated Ringer's (Lactated Ringers) 1,000 mls @ 100 mls/hr IV DIRECT NEY Last Admin: 07/27/19 07:00 Dose: 100 mls/hr Documented by: - Brief post op/procedure progress note Date of procedure: 07/27/19 Pre-op diagnosis: left ureteral stone 6mm Procedure: ESWL Anesthesia: GETA Surgeon: EVONNE ALLEN Estimated blood loss: none Condition: stable - Hospital course Hospital course: sary madrigal, post op info on chart - Disposition Condition at discharge: Stable Disposition: DC-01 TO HOME OR SELFCARE Short Stay Discharge Plan Follow up with: CHIOMA VELEZ MD [Primary Care Provider] - 7 Days
--- NOTE | 2019-07-27 09:14 | Operative Report ---
PREOPERATIVE DIAGNOSIS: Left proximal ureteral stone, 6 mm. POSTOPERATIVE DIAGNOSIS: Left proximal ureteral stone, 6 mm. PROCEDURE: Left extracorporal shock wave lithotripsy. SURGEON: Wisam May MD ANESTHESIA: General. ESTIMATED BLOOD LOSS: Minimal. FLUIDS: Crystalloid. COMPLICATIONS: No complications. INDICATIONS: This patient is a 68-year-old gentleman seen by Dr. Henley in the office, actually had a radical prostatectomy a year or two ago, developed flank pain. CT of abdomen and pelvis revealed a 6 mm proximal ureteral stone. Discussed the options, the patient and his agreed to proceed. DESCRIPTION OF PROCEDURE: The patient was taken to the operative suite, placed in a supine position. After adequate general anesthesia, the stone was localized in 2 planes using fluoroscopy. Extracorporal shock wave lithotripsy was administered with a maximum kV of 10 for a short period of time, primarily kV of 8 and 3000 shocks, maximum kV of 10 kV. Adequate fragmentation could be appreciated. He tolerated the procedure well, was extubated and taken to the recovery room in stable condition. He will go home on [facility] [place] and follow up in the office. JOB# [id number] [facility]/NT[facility]
[2019-07-27] MEDS ORDERED: HYDROcodone/ACETAMINOPHEN 5-325 MG TAB PO PRN (09:30)
[2019-07-27] MEDS: fentaNYL 100 MCG/2 ML INJ IV PRN ×2 (09:38→09:44)
[2019-07-27 10:53] VITALS: BP 145/84
--- NOTE | 2019-07-27 14:00 | Post Anesthesia Evaluation ---
- Post Anesthesia Evaluation Patient Participated: Yes Airway Patent: Yes Stable Respiratory Function: Yes Nausea/Vomiting: No Temp > 96.8F: Yes Pain Manageable: Yes Adequeate Hydration: Yes Anesthesia Complications: No
== END 2019-07-27 06:01 | disposition home or self-care (01) ==
LOC: OR 06:00
PROVIDERS: ATTEND Urology
DX: N20.1 Calculus of ureter (principal); G47.33 Obstructive sleep apnea (adult) (pediatric); E11.9 Type 2 diabetes mellitus without complications; G47.30 Sleep apnea, unspecified; Z90.49 Acquired absence of other specified parts of digestive tract; Z85.46 Personal history of malignant neoplasm of prostate; Z98.890 Other specified postprocedural states; Z79.899 Other long term (current) drug therapy; Z79.84 Long term (current) use of oral hypoglycemic drugs
CPT/HCPCS: 50590; 82962; J0690; J1100; J2370; J2405; J2704; J3010; J7120

== ENCOUNTER 2020-02-26 06:28 | Observation (INO) | payer MEDICARE ==
[2020-02-22 10:33] LABS: Hematocrit 45.5 % (35.5-45.6); Mean Corpuscular HGB Conc 35 % (32-34); Mean Corpuscular Volume 91 fl (84-94); Platelet Count 197 K/mm3 (140-440); Red Blood Count 5.02 M/mm3 (3.65-5.03)
[2020-02-22 10:57] LABS: Alanine Aminotransferase 51 units/L (7-56); Albumin 4.1 g/dL (3.9-5); BUN/Creatinine Ratio 21; Blood Urea Nitrogen 17 mg/dL (9-20); Calcium 9.2 mg/dL (8.4-10.2); Hemolysis Index 12
--- NOTE | 2020-02-22 12:40 | Anesthesia Consultation ---
Anesthesia Consult and Med Hx Date of service: 02/26/20 - Airway Anesthetic Teeth Evaluation: Good ROM Head & Neck: Adequate Mental/Hyoid Distance: Adequate Mallampati Class: Class II Intubation Access Assessment: Probably Good (previous MAC 4 and LMA 3) - Pulmonary Exam CTA: Yes - Cardiac Exam Cardiac Exam: RRR - Pre-Operative Health Status ASA Pre-Surgery Classification: ASA3 Proposed Anesthetic Plan: General - Pulmonary Hx Smoking: No Hx Respiratory Symptoms: No Hx Sleep Apnea: Yes (no CPAP) - Cardiovascular System Hx Hypertension: No Hx Heart Attack/AMI: No Hx Percutaneous Transluminal Coronary Angioplasty (PTCA): No Hx Cardia Arrhythmia: No - Central Nervous System Hx Neuromuscular Disorder: Yes (benign tremors) CVA: No Hx Back Pain: Yes (NUMBNESS,PAIN LLE) Hx Psychiatric Problems: No - Gastrointestinal Hx Gastroesophageal Reflux Disease: No - Endocrine Hx Renal Disease: No Hx Liver Disease: No Hx Non-Insulin Dependent Diabetes: Yes Hx Thyroid Disease: No - Other Systems Hx Alcohol Use: No Hx Substance Use: No Hx Cancer: Yes (hx prostate ca s/p prostatectomy) Hx Obesity: No - Additional Comments Anesthesia Medical History Comments: No hx anesthetic complications.
[~2020-02-26 06:28] MED LIST changes: +ACETAMINOPHEN 500 MG TAB PO SCH; +GABAPENTIN 300 MG CAP PO NR; -LACTATED RINGERS 1,000 ML IV SCH; +MIDAZOLAM 2 MG/2 ML INJ IV NR
[2020-02-26] MEDS ORDERED: SODIUM CHLORIDE 0.9% 250ML 0 ML ONE (06:39)
[2020-02-26] MEDS ORDERED: NEOMY 40 MG/POLYMYXIN B 200,000 UNITS/ML (GU) AMPULE IR ONE ×2 (06:39→09:27)
[2020-02-26] MEDS ORDERED: BACTERIOSTATIC SODIUM CHLORIDE 0.9% 30 ML VIAL INFILTRATI ONE (06:54)
[2020-02-26] MEDS ORDERED: VANCOMYCIN/NS 1 GM/250 ML 1 GM/250 ML BAG IV NR (07:00)
[2020-02-26] MEDS ORDERED: ceFAZolin/STERILE WATER 2 GM/20 ML SYRINGE IV NR (07:00)
[2020-02-26] MEDS: LACTATED RINGERS 1,000 ML IV SCH ×2 (07:05→18:12)
[2020-02-26] MEDS ORDERED: ONDANSETRON 4 MG/2 ML INJ IV PRN ×2 (07:14→11:53)
[2020-02-26] MEDS ORDERED: HYDROmorphone 1 MG/1 ML INJ IV PRN (07:14)
--- NOTE | 2020-02-26 07:16 | Anesthesia Day of Surgery ---
Anesthesia Day of Surgery - Day of Surgery Patient Examined: Yes Patient H&P Reviewed: Yes Patient is NPO: Yes
[2020-02-26] MEDS ORDERED: propofoL 200 MG/20 ML VIAL IV ONE (07:39)
[2020-02-26] MEDS ORDERED: LIDOCAINE MPF (2%) 20 MG/1 ML VIAL 5 ML ONE (07:39)
[2020-02-26] MEDS ORDERED: dexAMETHasone 20 MG/5 ML VIAL ONE (07:39)
[2020-02-26] MEDS ORDERED: HYDROmorphone 1 MG/1 ML INJ ONE ×2 (07:39→09:20)
[2020-02-26] MEDS ORDERED: ONDANSETRON 4 MG/2 ML INJ ONE (07:39)
[2020-02-26] MEDS ORDERED: ePHEDrine SULFATE 50 MG/1 ML INJ ONE (09:02)
[2020-02-26] MEDS ORDERED: SODIUM CHLORIDE 0.9% IRR 1,500 ML BOTTLE IR ONE (09:30)
[2020-02-26] MEDS ORDERED: SODIUM CHLORIDE 0.9% IRRIG SOLN 3000 ML IR ONE (09:51)
[2020-02-26] MEDS ORDERED: LACTATED RINGERS 1,000 ML ONE (10:42)
[2020-02-26] MEDS: HYDROmorphone 1 MG/1 ML INJ IV PRN ×2 (11:40→12:04)
[2020-02-26] MEDS ORDERED: NALOXONE 0.4 MG/1 ML INJ IV PRN (11:53)
[2020-02-26] MEDS ORDERED: HYDROcodone/ACETAMINOPHEN 5-325 MG TAB PO PRN (11:53)
--- NOTE | 2020-02-26 11:53 | Post Operative Note ---
Date of procedure: 02/26/20 Pre-op diagnosis: organic ed Post-op diagnosis: other (same plus stricture) Findings: as above Procedure: ipp and dilatation cysto Anesthesia: GETA Surgeon: AILYN AUGUST Estimated blood loss: 50-100ml Pathology: none Condition: stable Disposition: PACU
[2020-02-26] MEDS ORDERED: ZOLPIDEM 5 MG TAB PO PRN (11:57)
[2020-02-26] MEDS ORDERED: D5W/0.45% NACL/KCL 20 MEQ 20 MEQ/1,000 ML BAG IV SCH (12:00)
--- NOTE | 2020-02-26 12:46 | Operative Report ---
PREOPERATIVE DIAGNOSES: Organic erectile dysfunction and urethral stricture. POSTOPERATIVE DIAGNOSES: Organic erectile dysfunction and urethral stricture. PROCEDURE: Cystoscopy, urethral dilatation, insertion of Ambicor inflatable penile prosthesis. SURGEON: Dr. Henley. ANESTHESIA: General. FINDINGS: This is a gentleman post-radical prostatectomy with erectile dysfunction. All risks and implications discussed. DESCRIPTION OF PROCEDURE: The patient was brought to the operating room, placed on the operating table. Following induction of anesthesia, a full 10-15 minutes scrub and prep was carried out. We tried to place a catheter. He has some resistance and the cystoscopy showed a narrowed anastomosis, which a wire coiled and was dilated to 20-[place]. A 16 [place] was placed. At this point, a transverse penoscrotal incision was made, carried through the skin and superficial fascia. There were small vessels and maybe some old scarring there, but we carried this down to the corporal bodies on both sides. Stay sutures were placed. Corporotomies were made on each side. Dilatation to 13 [place] was carried out without difficulty. Once we dilated, measurements were 11 proximal and 9 distal on the patient's left and 0.5 cm small on the right, but I think this is just the visualization. We obtained the 18 with 2 cm rear tip Ambicor. This was placed. We had placed some stay sutures to help closure. We used the smaller Ambicor because of his size and because the Gerber should stay in for a few more extra days. The patient tolerated the procedure well. No significant complication. Closure was accomplished with 2-0 Vicryl, superficial fascia with 3-0 Vicryl, skin with 3-0 Vicryl and a pressure dressing. The patient was brought to recovery room in stable condition. JOB# [id number] RON/JIMENEZ
--- NOTE | 2020-02-26 14:35 | Post Anesthesia Evaluation ---
- Post Anesthesia Evaluation Patient Participated: Yes Airway Patent: Yes Stable Respiratory Function: Yes Nausea/Vomiting: No Temp > 96.8F: Yes Pain Manageable: Yes Adequeate Hydration: Yes Anesthesia Complications: No Block Receding Appropriately: Not Applicable Patient on Ventilator: No
[2020-02-26] MEDS: MORPHINE 2 MG/1 ML INJ IV PRN ×2 (17:16→20:47)
[2020-02-26] MEDS: ceFAZolin/NS 1 GM/50 ML 1 GM/50 ML BAG IV SCH ×2 (18:53→23:08)
[2020-02-26] MEDS: VANCOMYCIN/NS 1 GM/250 ML 1 GM/250 ML BAG IV SCH (21:02)
[2020-02-26] MEDS: FAMOTIDINE 20 MG/2 ML INJ IV SCH (23:07)
[2020-02-27] MEDS: MORPHINE 2 MG/1 ML INJ IV PRN ×2 (00:38→06:36)
[2020-02-27] MEDS: VANCOMYCIN/NS 1 GM/250 ML 1 GM/250 ML BAG IV SCH ×2 (05:56→09:07)
[2020-02-27] MEDS: FAMOTIDINE 20 MG/2 ML INJ IV SCH ×2 (06:36→09:07)
[2020-02-27] MEDS: ceFAZolin/NS 1 GM/50 ML 1 GM/50 ML BAG IV SCH (07:40)
--- NOTE | 2020-02-27 11:07 | Progress Note ---
Assessment and Plan ipp looks great keep hernandez x 2 days post dilatation Subjective Date of service: 02/27/20 Principal diagnosis: ED Objective - Constitutional Vitals: Vital Signs - 12hr 02/26/20 02/27/20 02/27/20 23:08 06:23 07:40 Temperature 99.1 F 98.9 F 99.4 F Pulse Rate 105 H 94 H 94 H Respiratory 18 18 18 Rate Blood Pressure 121/63 129/69 125/79 O2 Sat by Pulse 94 97 97 Oximetry General appearance: Present: no acute distress - Neck Neck: supple - Respiratory Respiratory effort: normal Extremities: no ischemia - Gastrointestinal General gastrointestinal: Present: soft, non-tender - Genitourinary Male genitourinary: tender - Labs CBC & Chem 7: 02/22/20 10:10 02/22/20 10:10 Labs: Abnormal lab results 02/26/20 02/26/20 02/26/20 Range/Units 11:35 17:19 22:16 POC Glucose 162 H 184 H 182 H (70-105) Medications & Allergies - Medications Allergies/Adverse Reactions: Allergies No Known Allergies Allergy (Verified 04/11/14 13:48) Home Medications: Home Medications Medication Instructions Recorded Confirmed Last Taken Type Metformin HCl [Metformin HCl ER] 1,000 mg PO BID 04/03/14 02/26/20 02/25/20 09:00 History Multivit-Mins/Iron/Folic/Lycop 1 each PO DAILY 09/27/18 02/26/20 02/25/20 09:00 History [Centrum Men's Tablet] Bydureon 1 syr SUB-Q 1XW 07/14/19 02/26/20 02/21/20 09:00 History Active Medications: Generic Name Dose Route Start Last Admin Trade Name Freq PRN Reason Stop Dose Admin Hydrocodone Bitart/Acetaminophen 2 each 02/26/20 11:53 02/27/20 09:35 [place] 5/325 PO 2 each Q6H PRN Administration Pain, Moderate (4-6) Famotidine 20 mg 02/26/20 22:00 02/27/20 09:07 Pepcid IV Not Given BID NEY Potassium Chloride/Dextrose/Sod Cl 20 meq in 1,000 mls @ 125 mls/hr 02/26/20 12:00 D5w/0.45% Nacl/Kcl 20 Meq IV DIRECT NEY Cefazolin Sodium 1 gm in 50 mls @ 100 mls/hr 02/26/20 15:30 02/27/20 07:40 Ancef/Ns 1 Gm/50 Ml IV 02/27/20 15:59 100 mls/hr Q8H NEY Administration Protocol Morphine Sulfate 2 mg 02/26/20 11:53 02/27/20 06:36 Morphine IV 2 mg Q4H PRN Administration Pain, Moderate (4-6) Naloxone HCl 0.1 mg 02/26/20 11:53 Naloxone IV Q2MIN PRN Res Rate </= 8 or 02 SAT < 92% Ondansetron HCl 4 mg 02/26/20 11:53 Zofran IV Q8H PRN N/V unrelieved by Tone Zolpidem Tartrate 5 mg 02/26/20 11:57 Ambien PO QHS PRN Sleep
--- NOTE | 2020-02-27 11:08 | Discharge Summary ---
Short Stay Discharge Plan Activity: other (no straining ) Weight Bearing Status: Full Weight Bearing Diet: low fat, low cholesterol, low salt Special Instructions: other (teach hernandez care ) Durable Medical Equipment Needed Upon Discharge: other (hernandez x 2 days ) Follow up with: CHIOMA VELEZ MD [Primary Care Provider] - 7 Days AILYN AUGUST MD [Staff Physician] - 02/29/20
[2020-02-27 11:52] VITALS: BP 113/70
[2020-02-27] MEDS ORDERED: FAMOTIDINE 20 MG TAB PO SCH (22:00)
== END 2020-02-27 15:30 | disposition home or self-care (01) ==
LOC: OR 06:28 → 3B 12:48
PROVIDERS: ADMIT Urology; ATTEND Urology
DX: N52.31 Erectile dysfunction following radical prostatectomy (principal); Z20.828 Contact with and (suspected) exposure to other viral communicable diseases; E11.9 Type 2 diabetes mellitus without complications; I10 Essential (primary) hypertension; Z85.46 Personal history of malignant neoplasm of prostate; Z79.84 Long term (current) use of oral hypoglycemic drugs; Z79.899 Other long term (current) drug therapy
CPT/HCPCS: 36415; 52281; 54401; 80053; 82962; 85027; 96361; 96365; 96366; 96367; 96375; 96376; A4217; C1726; C1769; C1813; G0378; J0690; J1100; J1170; J2250; J2270; J2405; J2704; J3370; J7120; U0003; J7050